=== PATIENT | male | born 2000 | race Caucasian/White ===

== ENCOUNTER 2019-06-12 19:29 | Emergency (ER) | payer BC ==
[2019-06-12 20:03] VITALS: BP 103/54
--- NOTE | 2019-06-12 21:26 | UC ---
Complaint Male HPI - HPI Summary HPI Summary: ONSET YESTERDAY OF INTERMITTENT DULL PAIN AT THE BASE OF HIS PENIS AND IN THE PERINEAL AREA. TODAY IT HAS BEEN CONSTANT. HE STATES IT IS MILD ENOUGH THAT IT DOES NOT IMPEDE HIS DAILY ACTIVITIES OR DISTRACT HIM BUT IT IS NOTICEABLE. HE DENIES ANY FEVER, NAUSEA, URINARY SYMPTOMS. NO PENILE DISCHARGE. NO SKIN CHANGES OR LESIONS IN THE AREA. HAS A HISTORY OF RIGHT-SIDED INGUINAL HERNIA REPAIR AT THE AGE OF 5 BUT HE DENIES ANY GROIN PAIN TODAY. NO FLANK PAIN. NO TESTICULAR PAIN. PATIENT HAS SEX WITH MEN BUT STATES HE USES BARRIER METHODS OF PROTECTION CONSISTENTLY. HE IS NOT AT ALL CONCERNED ABOUT STDS. STUDENT AT [employer]. - History of Current Complaint Chief Complaint: UCAbdominalPain Stated Complaint: LOWER ABDOMINAL/GROIN PAIN Time Seen by Provider: 06/12/19 19:36 Hx Obtained From: Patient Onset/Duration: Gradual Onset, Lasting Days, Still Present Timing: Constant Severity Initially: Mild Severity Currently: Mild Pain Intensity: 3 Pain Scale Used: 0-10 Numeric Location: Other - BASE OF PENIS, PERINEUM Aggravating Factor(s): Nothing Alleviating Factor(s): Nothing Associated Signs And Symptoms: Positive: Negative - Allergies/Home Medications Allergies/Adverse Reactions: Allergies Allergy/AdvReac Type Severity Reaction Status Date / Time adhesive Allergy Mild Rash Verified 06/12/19 20:03 Home Medications: Home Medications NK [No Home Medications Reported] 06/12/19 [History Confirmed 06/12/19] PMH/Surg Hx/FS Hx/Imm Hx Previously Healthy: Yes - Surgical History Surgical History: Yes Surgery Procedure, Year, and Place: wisdom teeth - Family History Known Family History: Positive: Non-Contributory - Social History Alcohol Use: Occasionally Substance Use Type: None Smoking Status (MU): Never Smoked Tobacco Review of Systems All Other Systems Reviewed And Are Negative: Yes Constitutional: Positive: Negative Skin: Positive: Negative Respiratory: Positive: Negative Cardiovascular: Positive: Negative Gastrointestinal: Positive: Negative Genitourinary: Positive: Vaginal/Penile Pain. Negative: Dysuria, Vaginal/ Penile Discharge, Vaginal/Penile Tenderness, Ulceration/Lesion Physical Exam Triage Information Reviewed: Yes Appearance: Well-Appearing, No Pain Distress, Well-Nourished, Thin Vital Signs: Initial Vital Signs Temp 100 F 06/12/19 19:55 Pulse 71 06/12/19 19:55 Resp 16 06/12/19 19:55 BP 103/54 06/12/19 19:55 Pulse Ox 98 06/12/19 19:55 Laboratory Tests 06/12/19 20:23 POC Urine Color Yellow POC Urine Clarity Clear POC Urine pH 7.0 POC Ur Specif Binger 1.015 POC Urine Protein Negative POC Ur Glucose (UA) Negative POC Urine Ketones Negative POC Urine Blood Trace-intact POC Urine Nitrite Negative POC Urine Bilirubin Negative POC Urine Urobilinogen 0.2 POC U Leukocyte Esteras Trace Vital Signs Reviewed: Yes Eyes: Positive: Conjunctiva Clear ENT: Positive: Hearing grossly normal Neck: Positive: Supple Respiratory Exam: Normal Cardiovascular Exam: Normal Abdomen Description: Positive: Nontender, Soft. Negative: CVA Tenderness (R), CVA Tenderness (L), Distended, Guarding Bowel Sounds: Positive: Present Male Genital Exam: Positive: Normal Genitalia, Normal Prostate, No Hernia. Negative: Epididymal Tenderness, Erythema, High Riding Prostate, Inguinal Tenderness, Lesions, Scrotum Tenderness (R), Scrotum Tenderness (L), Testicular Tenderness (R), Testicular Tenderness (L), Urethral Discharge Musculoskeletal: Positive: No Edema Neurological: Positive: Alert Psychological: Positive: Age Appropriate Behavior Skin: Negative: Rashes Complaint Male Course/Dx - Course Course Of Treatment: PATIENT COMPLAINING OF PAIN AT THE DORSAL SURFACE OF THE BASE OF HIS PENIS WELL A DULL ACHE IN THE PERINEAL AREA. PHYSICAL EXAM IS NORMAL. PAIN NOT REPRODUCIBLE WITH PALPATION. NO SKIN CHANGES OR EDEMA. PATIENT DENIES ANY SYSTEMIC SYMPTOMS. NO FEVER, NAUSEA, URINARY DISCOMFORT. HE HAS SEX WITH MEN BUT DENIES ANY CONCERN FOR STD. STATES HE USES BARRIER PROTECTION EVERY TIME. URINE WILL BE SENT FOR GONORRHEA AND CHLAMYDIA BUT HE DECLINES TESTING FOR ANY OTHER STD. URINE DIP WITH TRACE BLOOD AND TRACE LEUKS. SPECIMEN SENT FOR CULTURE. DISCUSSED WITH PATIENT CONDITIONS SUCH PROSTATITIS, FOURNIERE'S GANGRENE, GENITAL HERPES, HERNIA, TESTICULAR TORSION, EPIDIDYMITIS, UTI, KIDNEY STONE. PATIENT'S CLINICAL PRESENTATION AT THIS TIME IS NOT ENTIRELY CONSISTENT WITH ANY OF THESE DIAGNOSES. ADVISED HIM TO BE VIGILANT OF HIS SYMPTOMS AND IF THERE IS ANY PROGRESSION TO SEEK REEVALUATION IN THE ER. HE IS TO CALL UROLOGY TO SCHEDULE A FOLLOW-UP APPOINTMENT IN THE NEXT WEEK OR SO. RECOMMEND REPEAT URINE TEST. - Differential Dx/Diagnosis Provider Diagnosis: Perineal pain in male Discharge ED - Sign-Out/Discharge Documenting (check all that apply): Patient Departure All imaging exams completed and their final reports reviewed: No Studies - Discharge Plan Condition: Stable Disposition: HOME Referrals: [facility] [Provider Group] - 1 Week Popeye Seo MD [Primary Care Provider] - If Needed Additional Instructions: UNCLEAR ETIOLOGY OF YOUR DISCOMFORT. PHYSICAL EXAM TODAY ENTIRELY NORMAL. URINE WITH TRACE BACTERIA AND TRACE BLOOD. SPECIMEN HAS BEEN SENT FOR BACTERIAL CULTURE WELL FOR GONORRHEA AND CHLAMYDIA. WE WILL CALL YOU WITH ANY ABNORMAL RESULTS. TAKE IBUPROFEN TO HELP WITH THE DISCOMFORT. BE VIGILANT OF YOUR SYMPTOMS AND GO TO THE ER WITHOUT FAIL IF YOU DEVELOP WORSENING PAIN, FEVER, RASH/REDNESS OF THE SKIN, SWELLING, URINARY SYMPTOMS OR ANY OTHER CONCERNING SYMPTOMS. CALL UROLOGY TO SCHEDULE AN APPOINTMENT FOR FOLLOW-UP IN THE NEXT 1-2 WEEKS. I RECOMMEND YOU REPEAT YOUR URINE SAMPLE AT THAT TIME TO ENSURE THAT IT IS CLEAR. - Billing Disposition and Condition Condition: STABLE Disposition: Home
[2019-06-14 12:27] LABS: Chlamydia trachomatis NAA Negative (Negative); Neisseria gonorrhoeae (GC) NAA Negative (Negative)
== END 2019-06-12 21:37 | disposition home or self-care (01) ==
LOC: UCEAST 19:29
DX: R10.2 Pelvic and perineal pain (principal); Z91.09 Other allergy status, other than to drugs and biological substances
CPT/HCPCS: 81003; 87086; 87491; 87591; 99211; G0463